=== PATIENT | female | born 1980 | race Caucasian/White ===

== ENCOUNTER 2017-08-14 20:08 | Observation (INO) | payer SELFPAY ==
[2017-08-14 20:48] VITALS: BMI 37.8
[2017-08-14] MEDS ORDERED: Sodium Chloride 0.9% 500 ML IV STA (22:09)
[2017-08-14] MEDS ORDERED: Morphine 4 MG/ML VIAL ONE (22:23)
[2017-08-14 22:36] LABS: BASO # 0.1 K/uL (0.0-0.2); BASO % 0.8 % (0.0-2.0); EOS # 0.1 K/uL (0.0-0.7); EOS % 1.2 % (0.0-4.0); HEMOGLOBIN 12.3 g/dL (12.0-16.0); LYMPH # 2.2 K/uL (1.0-4.3); LYMPH % 20.7 % (20.0-40.0); MEAN CORPUSCULAR HEMOGLOBIN 29.5 pg (27.0-31.0); MEAN CORPUSCULAR HGB CONC 33.1 g/dL (33.0-37.0); MEAN PLATELET VOLUME 9.3 fl (7.2-11.7); MONO # 0.8 K/uL (0.0-0.8); MONO % 7.9 % (0.0-10.0); NEUT # 7.3 K/uL (1.8-7.0); NEUT % 69.4 % (50.0-75.0); RBC 4.17 Mil/uL (3.80-5.20); RED CELL DISTRIBUTION WIDTH 13.6 % (11.5-14.5); WHITE BLOOD COUNT 10.6 K/uL (4.8-10.8)
[2017-08-14] MEDS ORDERED: Iohexol 300 100 ML IJ ONE (22:41)
[2017-08-14] MEDS ORDERED: Sodium Chloride 0.9% 50 ML IV ONE (22:42)
[2017-08-14 22:45] LABS: ALB/GLOB RATIO 1.2 (1.0-2.1); ALBUMIN 4.3 g/dL (3.5-5.0); ALT/SGPT 31 U/L (9-52); AST/SGOT 25 U/L (14-36); BLOOD UREA NITROGEN 16 mg/dl (7-17); GFR AFRICAN-AMERICAN > 60; GFR NON-AFRICAN AMERICAN > 60
--- NOTE | 2017-08-14 23:13 | ED PDOC ---
HPI: Abdomen Time Seen by Provider: 08/14/17 21:49 Chief Complaint (Nursing): Fever Chief Complaint (Provider): rectal pain History Per: Patient History/Exam Limitations: no limitations Onset/Duration Of Symptoms: Days (5), Gradual, Persistent Quality Of Discomfort: Sharp, Pressure, "Pain" Associated Symptoms: Fever, Chills, Diarrhea. denies: Nausea, Vomiting, Loss Of Appetite Additional Complaint(s): severe rectal pain for 5 days worsening since onset, has been having diarrhea for 2 months after taking antibiotic for bronchitis about 4-5 episodes a day, watery nonbloody 5 days ago sudden feeling of pain to rectum and sensation of fullness of something coming out of rectum. Since then pain increasing. PMD None. Past Medical History Reviewed: Historical Data, Nursing Documentation, Vital Signs Vital Signs: Last Vital Signs Temp 98.2 F 08/15/17 14:08 Pulse 81 08/15/17 14:08 Resp 20 08/15/17 14:08 BP 117/69 08/15/17 14:08 Pulse Ox 100 08/15/17 14:08 - Medical History PMH: Anxiety, Depression, HTN Denies: Diabetes, Hepatitis, HIV, Seizures, Sexually Transmitted Disease - Surgical History Surgical History: Cholecystectomy, Tonsillectomy - Family History Family History: States: Hypertension - Social History Current smoker - smoking cessation education provided: No Alcohol: Occasional - Home Medications Home Medications: Ambulatory Orders Medication Instructions Recorded Amoxicillin/Clavulanate [Augmentin 1 tab PO Q12 #14 tab 08/15/17 875 MG-125 MG] Citalopram Hydrobromide [Celexa] 20 mg PO DAILY 08/15/17 Docusate Sodium [Colace] 100 mg PO BID #14 capsule 08/15/17 Losartan/Hydrochlorothiazide 1 tab PO AC 08/15/17 [Losartan-Hctz 100-25 mg Tab] clonazePAM [Klonopin] 0.5 mg PO DAILY PRN 08/15/17 oxyCODONE/Acetaminophen [Percocet 1 tab PO Q6 PRN #20 tab 08/15/17 5/325 mg Tab] - Allergies Allergies/Adverse Reactions: Allergies Allergy/AdvReac Type Severity Reaction Status Date / Time No Known Allergies Allergy Verified 08/15/17 08:44 Review of Systems ROS Statement: Except As Marked, All Systems Reviewed And Found Negative (and as per HPI) Constitutional: Positive for: Fever, Chills Gastrointestinal: Positive for: Diarrhea, Rectal Pain Physical Exam - Reviewed Nursing Documentation Reviewed: Yes Vital Signs Reviewed: Yes - Physical Exam Appears: Positive for: Non-toxic, In Acute Distress Head Exam: Positive for: ATRAUMATIC, NORMOCEPHALIC Skin: Positive for: Warm, Dry Eye Exam: Positive for: EOMI, PERRL ENT: Positive for: Pharynx Is (clear), Other (mucus membranes moist) Neck: Positive for: Painless ROM, Supple Cardiovascular/Chest: Positive for: Regular Rate, Rhythm Respiratory: Negative for: Accessory Muscle Use, Respiratory Distress Gastrointestinal/Abdominal: Positive for: Soft. Negative for: Tenderness, Mass , Distended, Guarding Back: Positive for: Normal Inspection, Other (LEFT buttock with erythema superior buttock near midline gluteal fold). Negative for: Decreased ROM Rectal: Positive for: Rectal Tone Is: (normal), Tenderness (exquisite) Extremity: Positive for: Normal ROM. Negative for: Deformity Lymphatic: Negative for: Adenopathy Neurologic/Psych: Positive for: Alert. Negative for: Motor/Sensory Deficits - Laboratory Results Result Diagrams: 08/15/17 06:55 08/15/17 06:55 - ECG O2 Sat by Pulse Oximetry: 98 - Progress ED Course And Treament: EXAM: CT Pelvis With Intravenous Contrast EXAM DATE/TIME: 08/14/2017 10:10 PM CLINICAL HISTORY: 37 years old, female; Pain; Other: Rectal pain; Patient HX: Diarrhea for a few weeks; Additional info: Rectal pain and possible rectal abscess TECHNIQUE: Axial computed tomography images of the pelvis with intravenous contrast. All CT scans at this facility use at least one of these dose optimization techniques: automated exposure control; mA and/or kV adjustment per patient size (includes targeted exams where dose is matched to clinical indication); or iterative reconstruction. Coronal and sagittal reformatted images were created and reviewed. CONTRAST: 95 mL of [id number] administered intravenously. COMPARISON: No relevant prior studies available. FINDINGS: Bowel: Complex fluid collection/abscess immediately posterior to the anal canal measures 2.6 x 2.1 x 2.5 cm. No obstruction. No mucosal thickening. Appendix: No findings to suggest acute appendicitis. Intraperitoneal space: Unremarkable. No free air. No significant fluid collection. Bladder: Unremarkable. No mass. Reproductive: Benign-appearing left ovarian cyst versus subserosal uterine leiomyoma measures 3.6 cm. Bones/joints: No acute fracture. No dislocation. Soft tissues: Unremarkable. Vasculature: Unremarkable. No lower abdominal aortic aneurysm. Lymph nodes: Unremarkable. No enlarged lymph nodes. IMPRESSION: Complex fluid collection/abscess immediately posterior to the anal canal measures 2.6 x 2.1 x 2.5 cm. Thank you for allowing us to participate in the care of your patient. Dictated and Authenticated by: Garfield Krishnan MD 08/14/2017 11:56 PM Eastern Time ([place] & [place]) MARK Greenwood Surgery Resident. MARK Newell Hospitalist MARK pt and partner findings and plan. Disposition - Clinical Impression Clinical Impression: Perianal abscess - Disposition Disposition Time: 00:00 Condition: FAIR - Pt Status Changed To: Hospital Disposition Of: Inpatient - Admit Certification Admit to Inpatient:: After my assessment, the patient will require hospitalization for at least two midnights. This is because of the severity of symptoms shown, intensity of services needed, and/or the medical risk in this patient being treated as an outpatient. - POA Present On Arrival: None
[2017-08-15] MEDS ORDERED: Piperacillin/Tazobact 3.375 GM in Sodium Chloride 0.9% 100 ML IVPB STA (00:04)
[2017-08-15] MEDS ORDERED: Piperacillin/Tazobact 3.375 gm Inj IVPB ONE ×2 (00:11→05:06)
--- NOTE | 2017-08-15 00:41 | CP.PCM.CON ---
History of Present Illness - History of Present Illness History of Present Illness: Surgery Consult note. Dr. Campbell 37yo F with PMHx of Anxiety/Depression, HTN here for evaluation of rectal pain. Patient states that she has been having loose stools for the past 2 months, started after taking a course of Cipro which was prescribed for a "bronchial infection." She states that over the past 5 days, she noted some rectal pain which began as she was trying to defecate. She states that she felt a lump on the left side of her anal verge which has been getting increasingly painful. She has been continuing to have loose stools over this time and her anal pain has been getting gradually worse. She has tried taking Anusol RC, sitz baths and immodium without any relief. Today she started feeling chills and had a Tmax of 100.7F at home which prompted her to come in to the ER. She also reports traveling to [place] last month, which she states may have contributed to her diarrheal symptoms; no other sick contacts. Denies any rectal bleeding, melena or hematochezia. She denies any purulent discharge. Denies any unintentional weight gain or weight loss. Denies any abdominal pain, nausea or vomiting. No urinary complaints. No CP/SOB. PMHx: Anxiety/Depression, HTN PSHx: Cholecystectomy, Tonsillectomy Family Hx: Father - Colon [place] Social Hx: Denies Tobacco, Occasional ETOH use, Denies illicit drugs NKDA Review of Systems - Review of Systems All systems: reviewed and no additional remarkable complaints except - Constitutional Constitutional: Chills, Fever. absent: Weight Gain, Weight Loss - Cardiovascular Cardiovascular: absent: Chest Pain, Dyspnea - Respiratory Respiratory: absent: Dyspnea - Gastrointestinal Gastrointestinal: Diarrhea, Loose Stools. absent: Abdominal Pain, Hematemesis, Hematochezia, Melena, Nausea, Vomiting - Genitourinary Genitourinary: absent: Dysuria Past Patient History - Past Social History Alcohol: Occasional - CARDIAC Hx Hypertension: Yes - PULMONARY Hx Tuberculosis: No - NEUROLOGICAL Hx Seizures: No - HEMATOLOGICAL/ONCOLOGICAL Hx Human Immunodeficiency Virus (HIV): No - GENITOURINARY/GYNECOLOGICAL Hx Sexually Transmitted Disorders: No - PSYCHIATRIC Hx Anxiety: Yes Hx Depression: Yes - SURGICAL HISTORY Hx Cholecystectomy: Yes Hx Tonsillectomy: Yes - ANESTHESIA Hx Anesthesia: Yes Meds Allergies/Adverse Reactions: Allergies Allergy/AdvReac Type Severity Reaction Status Date / Time No Known Allergies Allergy Verified 12/22/15 21:37 - Medications Medications: Current Medications Piperacillin Sod/Tazobactam (Sod 3.375 gm/ Sodium Chloride) 100 mls @ 100 mls/ hr IVPB STAT STA PRN Reason: Protocol Stop: 08/15/17 01:03 Last Admin: 08/15/17 00:18 Dose: 100 mls/hr Physical Exam - Constitutional Appears: Well, Non-toxic, No Acute Distress - Head Exam Head Exam: ATRAUMATIC, NORMAL INSPECTION, NORMOCEPHALIC - Eye Exam Eye Exam: EOMI, Normal appearance. absent: Scleral icterus - ENT Exam ENT Exam: Mucous Membranes Moist - Respiratory Exam Respiratory Exam: NORMAL BREATHING PATTERN. absent: Accessory Muscle Use, Respiratory Distress - Cardiovascular Exam Cardiovascular Exam: RRR. absent: JVD - GI/Abdominal Exam GI & Abdominal Exam: Soft. absent: Distended, Firm, Guarding, Rebound Additional comments: mild tenderness to palpation of RUQ and mid abdomen. Soft, non-distended. No guarding. No rebound - Rectal Exam Additional comments: No appreciable skin erythema, induration, or fluctuance. Rectal exam exquisitely tender, worse tenderness to the left lateral aspect of the anal verge with some appreciable fullness and fluctuance. No active drainage noted. - Extremities Exam Extremities exam: Positive for: normal inspection. Negative for: calf tenderness - Back Exam Back exam: NORMAL INSPECTION - Neurological Exam Neurological exam: Alert, Oriented x3 - Psychiatric Exam Psychiatric exam: Normal Affect, Normal Mood - Skin Skin Exam: Dry, Intact, Normal Color, Warm Results - Vital Signs Recent Vital Signs: Last Vital Signs Temp 99.3 F 08/14/17 20:48 Pulse 97 H 08/14/17 20:48 Resp 16 08/14/17 20:48 BP 155/88 H 08/14/17 20:48 Pulse Ox 98 08/15/17 00:30 - Labs Result Diagrams: 08/14/17 22:15 08/14/17 22:15 Labs: Laboratory Results - last 24 hr 08/14/17 08/14/17 08/14/17 22:15 22:15 22:15 WBC 10.6 RBC 4.17 Hgb 12.3 Hct 37.1 MCV 89.0 MCH 29.5 MCHC 33.1 RDW 13.6 Plt Count 219 MPV 9.3 Neut % (Auto) 69.4 Lymph % (Auto) 20.7 [place] % (Auto) 7.9 Eos % (Auto) 1.2 Baso % (Auto) 0.8 Neut # (Auto) 7.3 H Lymph # (Auto) 2.2 [place] # (Auto) 0.8 Eos # (Auto) 0.1 Baso # (Auto) 0.1 Sodium 139 Potassium 4.0 Chloride 105 Carbon Dioxide 23 Anion Gap 15 BUN 16 Creatinine 0.7 Est GFR ( Amer) > 60 Est GFR (Non-Af Amer) > 60 Random Glucose 100 Lactic Acid 1.1 Calcium 9.0 Total Bilirubin 0.5 AST 25 ALT 31 Alkaline Phosphatase 91 Total Protein 7.8 Albumin 4.3 Globulin 3.5 Albumin/Globulin Ratio 1.2 Assessment & Plan - Assessment and Plan (Free Text) Assessment: 37yo F with possible perirectal abscess - CT pelvis noted: 2.6 x 2.1 x 2.5cm fluid collection noted adjacent to the anus. Plan: - NPO for now - IV abx - IVF - f/u AM labs - f/u stool studies - Warm compresses to the affected area - Pain management - We will follow and make further recs as we monitor patient's clinical status Further recs as per Dr. Adrian Greenwood PGY1 surgery pager: [phone]
[2017-08-15] MEDS ORDERED: Sodium Chloride 0.9% 1,000 ML IV SCH (00:45)
--- NOTE | 2017-08-15 01:15 | CP.PCM.HP ---
History of Present Illness - History of Present Illness History of Present Illness: CC: rectal pain HPI: 37F PMH anxiety, depression, hypertension, presents with a several day history of moderate to severe worsening rectal pain, associated with loose stools for approximately 2 months. Patient recently completed a course of Cipro for a "bronchial infection" and also traveled to [place] about one month ago. Patient had a fever of 100.7 today, and has tried Anusol and sitz baths without relief. Patient evaluated by surgery team, Dr. Campbell, will place on Zosyn and NPO for possible OR tomorrow. ROS: per HPI all other systems reviewed and negative. Present on Admission - Present on Admission Any Indicators Present on Admission: No Past Patient History - Past Social History Alcohol: Occasional - CARDIAC Hx Hypertension: Yes - PULMONARY Hx Tuberculosis: No - NEUROLOGICAL Hx Seizures: No - HEMATOLOGICAL/ONCOLOGICAL Hx Human Immunodeficiency Virus (HIV): No - GENITOURINARY/GYNECOLOGICAL Hx Sexually Transmitted Disorders: No - PSYCHIATRIC Hx Anxiety: Yes Hx Depression: Yes - SURGICAL HISTORY Hx Cholecystectomy: Yes Hx Tonsillectomy: Yes - ANESTHESIA Hx Anesthesia: Yes Meds Allergies/Adverse Reactions: Allergies Allergy/AdvReac Type Severity Reaction Status Date / Time No Known Allergies Allergy Verified 12/22/15 21:37 Physical Exam - Constitutional Appears: Non-toxic, No Acute Distress - Head Exam Head Exam: ATRAUMATIC, NORMOCEPHALIC - Eye Exam Eye Exam: EOMI, Normal appearance, PERRL Pupil Exam: NORMAL ACCOMODATION - ENT Exam ENT Exam: Mucous Membranes Moist, Normal Oropharynx - Respiratory Exam Respiratory Exam: Clear to Auscultation Bilateral, NORMAL BREATHING PATTERN - Cardiovascular Exam Cardiovascular Exam: RRR, +S1, +S2 - GI/Abdominal Exam GI & Abdominal Exam: Normal Bowel Sounds, Soft. absent: Mass, Tenderness - Extremities Exam Extremities exam: Positive for: normal capillary refill, pedal pulses present - Back Exam Back exam: absent: CVA tenderness (L), CVA tenderness (R) - Neurological Exam Neurological exam: Alert, Oriented x3 - Psychiatric Exam Psychiatric exam: Normal Affect, Normal Mood - Skin Additional comments: AREA OF FLUCTUANCE ERYTHEMA VERY TENDER L SIDE OF ANAL VERGE Results - Vital Signs Recent Vital Signs: Last Vital Signs Temp 99.3 F 08/14/17 20:48 Pulse 97 H 08/14/17 20:48 Resp 16 08/14/17 20:48 BP 155/88 H 08/14/17 20:48 Pulse Ox 98 08/15/17 00:30 - Labs Result Diagrams: 08/14/17 22:15 08/14/17 22:15 Labs: Laboratory Results - last 24 hr 08/14/17 08/14/17 08/14/17 22:15 22:15 22:15 WBC 10.6 RBC 4.17 Hgb 12.3 Hct 37.1 MCV 89.0 MCH 29.5 MCHC 33.1 RDW 13.6 Plt Count 219 MPV 9.3 Neut % (Auto) 69.4 Lymph % (Auto) 20.7 [place] % (Auto) 7.9 Eos % (Auto) 1.2 Baso % (Auto) 0.8 Neut # (Auto) 7.3 H Lymph # (Auto) 2.2 [place] # (Auto) 0.8 Eos # (Auto) 0.1 Baso # (Auto) 0.1 Sodium 139 Potassium 4.0 Chloride 105 Carbon Dioxide 23 Anion Gap 15 BUN 16 Creatinine 0.7 Est GFR ( Amer) > 60 Est GFR (Non-Af Amer) > 60 Random Glucose 100 Lactic Acid 1.1 Calcium 9.0 Total Bilirubin 0.5 AST 25 ALT 31 Alkaline Phosphatase 91 Total Protein 7.8 Albumin 4.3 Globulin 3.5 Albumin/Globulin Ratio 1.2 Assessment & Plan - Assessment and Plan (Free Text) Plan: 37F PMH anxiety, depression, hypertension, presents with a several day history of moderate to severe worsening rectal pain, associated with loose stools for approximately 2 months. Patient recently completed a course of Cipro for a "bronchial infection" and also traveled to [place] about one month ago. Patient had a fever of 100.7 today, and has tried Anusol and sitz baths without relief. Patient evaluated by surgery team, Dr. Campbell, will place on Zosyn and NPO for possible OR tomorrow. Perirectal Abscess - afebrile, no WBC - Surgery consult: Dr. Campbell - CTAP: wet read - small collection perirectal - Zosyn initiated in ED - warm compresses - NPO after MN with maintenance fluids Diarrhea - cultures pending HTN - cont Cozaar Anxiety and Depression - continue Lexapro and Klonopin PRN VTE pt ambulates, SCDs
[2017-08-15] MEDS ORDERED: Potassium Ch 20mEq in D5-1/2NS 1,000 ML IV SCH (02:00)
[2017-08-15] MEDS ORDERED: Piperacillin/Tazobact 3.375 GM in Sodium Chloride 0.9% 100 ML IVPB SCH (04:00)
[2017-08-15 07:16] LABS: BASO # 0.1 K/uL (0.0-0.2); BASO % 0.6 % (0.0-2.0); EOS # 0.2 K/uL (0.0-0.7); EOS % 1.8 % (0.0-4.0); HEMOGLOBIN 11.7 g/dL (12.0-16.0); LYMPH # 1.8 K/uL (1.0-4.3); LYMPH % 19.1 % (20.0-40.0); MEAN CELL VOLUME 89.4 fl (81.0-99.0); MEAN CORPUSCULAR HEMOGLOBIN 29.3 pg (27.0-31.0); MEAN CORPUSCULAR HGB CONC 32.8 g/dL (33.0-37.0); MEAN PLATELET VOLUME 9.2 fl (7.2-11.7); MONO # 0.7 K/uL (0.0-0.8); MONO % 7.6 % (0.0-10.0); NEUT # 6.6 K/uL (1.8-7.0); NEUT % 70.9 % (50.0-75.0); RBC 3.98 Mil/uL (3.80-5.20); RED CELL DISTRIBUTION WIDTH 13.4 % (11.5-14.5); WHITE BLOOD COUNT 9.3 K/uL (4.8-10.8)
[2017-08-15] MEDS ORDERED: Propofol 10 mg/ml Inj (20 ML) ONE (08:12)
[2017-08-15] MEDS ORDERED: Rocuronium 10 mg/ml (5 ml) ONE (08:12)
[2017-08-15] MEDS ORDERED: Midazolam 2 MG/2 ML VIAL ONE (08:12)
[2017-08-15] MEDS ORDERED: Succinylcholine 200 mg/10 ml Inj IV ONE (08:12)
[2017-08-15] MEDS ORDERED: Phenylephrine 10 mg/ml Inj ONE ×2 (08:13→08:26)
[2017-08-15 08:35] LABS: ALBUMIN 3.6 g/dL (3.5-5.0); ALT/SGPT 32 U/L (9-52); AST/SGOT 28 U/L (14-36); BLOOD UREA NITROGEN 14 mg/dl (7-17); GFR AFRICAN-AMERICAN > 60; GFR NON-AFRICAN AMERICAN > 60
[2017-08-15] MEDS ORDERED: Lactated Ringer's 1,000 ML IV ONE (09:17)
[2017-08-15] MEDS ORDERED: ePHEDrine 50 mg/ml Inj ONE (09:48)
--- NOTE | 2017-08-15 09:58 | PCM.SURG1 ---
Surgeon's Initial Post Op Note - Surgeon's Notes Surgeon: Dr. Campbell [employer] Teacher: Braulio Diaz DPM PGY1 Type of Anesthesia: General Endo Anesthesia Administered By: Dr. Cox Pre-Operative Diagnosis: Rectal abscess Operative Findings: See operative report Post-Operative Diagnosis: same Operation Performed: Incision and drainage of rectal abscess Specimen/Specimens Removed: Rectal abscess wound culture Estimated Blood Loss: EBL {In ML}: 5 Blood Products Given: N/A Drains Used: No Drains Post-Op Condition: Good Date of Surgery/Procedure: 08/15/17 Time of Surgery/Procedure: 09:58
[2017-08-15] MEDS ORDERED: Oxycodone/Acetaminophen 5/325 mg Tab PO PRN ×2 (10:02)
--- NOTE | 2017-08-15 10:21 | CT ---
PROCEDURE: CT Pelvis with contrast HISTORY: rectal pain and possible rectal abscess COMPARISON: None. TECHNIQUE: Contiguous axial images of the pelvis with contrast. Coronal and sagittal reformats generated. Contrast dose: 95 mL Omnipaque 300 Radiation dose: Total exam DLP = 607 mGy-cm. This CT exam was performed using one or more of the following dose reduction techniques: Automated exposure control, adjustment of the mA and/or kV according to patient size, and/or use of iterative reconstruction technique. FINDINGS: BLADDER: Unremarkable. No mass. REPRODUCTIVE ORGANS: Bilateral adnexal focal hypodense prominence -most likely representing bilateral ovarian dominant follicles and/or small ovarian cysts. The left is more prominent than the right. For this consider more sensitive pelvic transvaginal ultrasound imaging. VISUALIZED BOWEL: No bowel obstruction seen. Along the posterior aspect of the anus, a complex fluid collection- resembling a thin walled abscess measuring 2.6 x 2.1 x 2.0 cm in size is noted. PERITONEUM: Unremarkable, as visualized. No significant appearing free fluid in the cul-de-sac. No free air. LYMPH NODES: Unremarkable. No enlarged lymph nodes. VASCULATURE: Unremarkable. BONES: No fracture or focal lesion. OTHER FINDINGS: Mild fat only containing bilateral groin hernias right slightly larger than left. IMPRESSION: Complex fluid collection resembling a thin-walled abscess - bordering the posterior anus as referenced above. No obstruction. No free air Concordant results (preliminary interpretation) provided by [facility].
--- NOTE | 2017-08-15 10:39 | CP.PCM.DIS ---
Provider - Provider Date of Admission: 08/15/17 00:08 Attending physician: Yane Newell DO Primary care physician: None Consults: surgery consult Time Spent in preparation of Discharge (in minutes): 10 Hospital Course - Lab Results Lab Results: Most Recent Lab Values WBC 9.3 K/uL (4.8-10.8) 08/15/17 06:55 RBC 3.98 Mil/uL (3.80-5.20) 08/15/17 06:55 Hgb 11.7 g/dL (12.0-16.0) L 08/15/17 06:55 Hct 35.6 % (34.0-47.0) 08/15/17 06:55 MCV 89.4 fl (81.0-99.0) 08/15/17 06:55 MCH 29.3 pg (27.0-31.0) 08/15/17 06:55 MCHC 32.8 g/dL (33.0-37.0) L 08/15/17 06:55 RDW 13.4 % (11.5-14.5) 08/15/17 06:55 Plt Count 205 K/uL (130-400) 08/15/17 06:55 MPV 9.2 fl (7.2-11.7) 08/15/17 06:55 Neut % (Auto) 70.9 % (50.0-75.0) 08/15/17 06:55 Lymph % (Auto) 19.1 % (20.0-40.0) L 08/15/17 06:55 [place] % (Auto) 7.6 % (0.0-10.0) 08/15/17 06:55 Eos % (Auto) 1.8 % (0.0-4.0) 08/15/17 06:55 Baso % (Auto) 0.6 % (0.0-2.0) 08/15/17 06:55 Neut # (Auto) 6.6 K/uL (1.8-7.0) 08/15/17 06:55 Lymph # (Auto) 1.8 K/uL (1.0-4.3) 08/15/17 06:55 [place] # (Auto) 0.7 K/uL (0.0-0.8) 08/15/17 06:55 Eos # (Auto) 0.2 K/uL (0.0-0.7) 08/15/17 06:55 Baso # (Auto) 0.1 K/uL (0.0-0.2) 08/15/17 06:55 Sodium 139 mmol/l (132-148) 08/15/17 06:55 Potassium 4.3 MMOL/L (3.6-5.0) 08/15/17 06:55 Chloride 110 mmol/L (98-107) H 08/15/17 06:55 Carbon Dioxide 21 mmol/L (22-30) L 08/15/17 06:55 Anion Gap 12 (10-20) 08/15/17 06:55 BUN 14 mg/dl (7-17) 08/15/17 06:55 Creatinine 0.6 mg/dl (0.7-1.2) L 08/15/17 06:55 Est GFR ( Amer) > 60 08/15/17 06:55 Est GFR (Non-Af Amer) > 60 08/15/17 06:55 Random Glucose 107 mg/dL (65-105) H 08/15/17 06:55 Lactic Acid 1.1 MMOL/L (0.7-2.1) 08/14/17 22:15 Calcium 8.0 mg/dL (8.4-10.2) L 08/15/17 06:55 Total Bilirubin 0.9 mg/dl (0.2-1.3) 08/15/17 06:55 AST 28 U/L (14-36) 08/15/17 06:55 ALT 32 U/L (9-52) 08/15/17 06:55 Alkaline Phosphatase 65 U/L (38-126) 08/15/17 06:55 Total Protein 7.1 G/DL (6.3-8.2) 08/15/17 06:55 Albumin 3.6 g/dL (3.5-5.0) 08/15/17 06:55 Globulin 3.5 gm/dL (2.2-3.9) 08/15/17 06:55 Albumin/Globulin Ratio 1.0 (1.0-2.1) 08/15/17 06:55 - Hospital Course Hospital Course: 37 F PMH anxiety, depression, hypertension, presented with several day history of moderate to severe worsening rectal pain, associated with loose stools for approximately 2 months. Patient recently completed a course of Cipro for a "bronchial infection" and also traveled to [place] about one month ago. Patient had a fever of 100.7 today, and has tried Anusol and sitz baths without relief.CT pelvis showed Complex fluid collection resembling a thin-walled abscess - bordering the posterior anus No obstruction. No free air Surgery was consulted . She wsa started on Zosyn Iv empirically She wsa taken to Or and underwent I&D by surgery . Patient has no fever , no WBc count and is not immyunocompromised. Cleared by surgery for duischarge after I& D Will d/c patient home on Po Clindamycin for 7 daus . Continue 3 -4 times /day sittz baths with warm water. Pain management PRN and Colace ( stool softener ) Follow up with Dr. campbell in 1 week 1. Perirectal abscess 2.HTN 3.Anxiety and Depression Discharge Exam - Head Exam Head Exam: ATRAUMATIC, NORMOCEPHALIC - Eye Exam Eye Exam: EOMI, Normal appearance, PERRL Pupil Exam: NORMAL ACCOMODATION - ENT Exam ENT Exam: Mucous Membranes Moist, Normal Exam - Neck Exam Neck exam: Full Rom, Normal Inspection - Respiratory Exam Respiratory Exam: Clear to PA & Lateral, NORMAL BREATHING PATTERN. absent: Rales, Rhonchi, Wheezes - Cardiovascular Exam Cardiovascular Exam: REGULAR RHYTHM, RRR, +S1, +S2. absent: JVD - GI/Abdominal Exam GI & Abdominal Exam: Normal Bowel Sounds, Soft. absent: Distended, Guarding, Rebound, Tenderness - Rectal Exam Rectal Exam: Deferred - Extremities Exam Extremities exam: normal capillary refill, normal inspection, pedal pulses present - Back Exam Back exam: NORMAL INSPECTION - Neurological Exam Neurological exam: Alert, CN II-XII Intact, Oriented x3 - Psychiatric Exam Psychiatric exam: Normal Affect, Normal Mood - Skin Skin Exam: Dry, Intact, Normal Color, Warm Discharge Plan - Discharge Medications Prescriptions: Clindamycin [Cleocin] 300 mg PO TID #21 cap Docusate Sodium [Colace] 100 mg PO BID #14 capsule oxyCODONE/Acetaminophen [Percocet 5/325 mg Tab] 1 tab PO Q6 PRN #20 tab PRN Reason: Pain, Severe (8-10) - Follow Up Plan Condition: STABLE Disposition: HOME/ ROUTINE Patient education suggested?: Yes Instructions: Anal Abscess and Fistula (DC) Referrals: Kd Campbell MD [Staff Provider] -
[2017-08-15 14:09] VITALS: BP 117/69; PULSE 81; RESP 20; TEMP 98.2
--- NOTE | 2017-08-16 02:04 | OP ---
PROCEDURE DATE: 08/15/2017 SURGEON: Kd Campbell MD CUSTOMER SALES REPRESENTATIVE: Bryon Diaz DPM ANESTHESIA: General, Dr. Cox. PREOPERATIVE DIAGNOSIS: Rectal abscess. POSTOPERATIVE DIAGNOSIS: Rectal abscess. PROCEDURE: Incision and drainage of rectal abscess. DESCRIPTION OF OPERATION: The patient was anesthetized and placed in the lithotomy position. Rectal examination was performed under anesthesia with no visible external findings. However, on digital rectal examination just within the anal canal at 5 o'clock in the left posterior position, there was an area of induration with some fluctuance extending upward, approximately 1 inch. There was no additional proximal extension, and there did not appear to be any lateral extension beyond the rectal wall. The anal area was prepped and draped in the usual sterile manner and a small incision was made within the upper portion of the anal canal directly into the area of fluctuance with immediate drainage of a large quantity of white non-foul smelling pus. The incision was spread with a clamp and cultures were taken. Examination again at this point revealed resolution of the swelling, and the area was irrigated, and the patient tolerated the procedure well and transferred to the recovery room in stable condition. Estimated blood loss for the procedure was 5 mL. Kd Campbell MD
[2017-08-16 16:11] VITALS: O2SAT 98
== END 2017-08-15 15:00 | disposition home or self-care (01) ==
LOC: H.ER 20:08 → H.ERHOLD 08-15 00:08 → INTOOBSV 08-15 00:08
PROVIDERS: ADMIT Student in an Organized Health Care Education/Training Program; ATTEND Student in an Organized Health Care Education/Training Program
DX: K61.1 Rectal abscess (principal); F41.9 Anxiety disorder, unspecified; F32.9 Major depressive disorder, single episode, unspecified; I10 Essential (primary) hypertension; K52.1 Toxic gastroenteritis and colitis; T36.95XA Adverse effect of unspecified systemic antibiotic, initial encounter
CPT/HCPCS: 46040; 72193; 80053; 81025; 83605; 85025; 87040; 87070; 96361; 96374; 96375; 96376; 99285; G0378; J0330; J1885; J2001; J2250; J2270; J2370; J2405; J2543; J2704; J2765; J3010; J7030; J7120; Q9967